=== PATIENT | male | born 1975 | race Two or more races ===

== ENCOUNTER 2018-07-28 20:25 | Emergency (ER) | payer MEDICAID ==
[~2018-07-28] VITALS: Ht 177.8 cm; Wt 145.1 kg
[2018-07-28] MEDS ORDERED: IBUPROFEN 800 MG TAB PO ONE (20:45)
[2018-07-28] MEDS ORDERED: HYDROcodone-ACET 7.5/325MG TAB PO ONE (23:15)
[2018-07-28] MEDS ORDERED: DexAMETHasone SOD PHOS 10MG/1ML VIAL INJ IM ONE (23:15)
[2018-07-28] MEDS ORDERED: cefTRIAXone SOD 1,000 MG VL IM ONE (23:15)
[2018-07-28] MEDS ORDERED: LIDOCAINE 1% HCL (LOCAL ANESTH.) INJ 20ML MDV ONE (23:52)
[2018-07-29 00:05] VITALS: BP 116/81
[2018-07-29] MEDS ORDERED: LIDOCAINE 1% HCL (LOCAL ANESTH.) INJ 20ML MDV IJ ONE (00:15)
== END 2018-07-29 00:32 | disposition home or self-care (01) ==
LOC: ER 20:28
DX: J06.9 Acute upper respiratory infection, unspecified (principal)
CPT/HCPCS: 96372; 99283; J0696; J1100; J2001

== ENCOUNTER 2018-07-30 15:38 | Emergency (ER) | payer MEDICAID ==
[~2018-07-30] VITALS: Ht 177.8 cm; Wt 145.1 kg
[2018-07-30] MEDS ORDERED: cefTRIAXone SOD 1,000 MG VL IM ONE (17:00)
[2018-07-30 17:45] VITALS: BP 138/92
== END 2018-07-30 18:14 | disposition home or self-care (01) ==
LOC: ER 15:38
DX: L03.116 Cellulitis of left lower limb (principal)
CPT/HCPCS: 96372; 99283; J0696